=== PATIENT | male | born 1965 | race Caucasian/White ===

== ENCOUNTER 2018-04-24 17:10 | Emergency (ER) | payer MEDICARE, MEDICAID ==
[2018-04-24 17:19] VITALS: BMI 28.1
[2018-04-24 17:24] VITALS: BP 146/82; PULSE 89; RESP 18; TEMP 99; O2SAT 96
[2018-04-24] MEDS ORDERED: Bacitracin 500 Units/gm Oint Foilpak UD TOP STA (17:33)
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
[2018-04-24] MEDS ORDERED: Bacitracin 500 Units/gm Oint Foilpak UD ONE (17:38)
== END 2018-04-24 18:05 ==
LOC: C.ER 17:10
DX: S00.81XA Abrasion of other part of head, initial encounter (principal); Y04.0XXA Assault by unarmed brawl or fight, initial encounter

== ENCOUNTER 2018-12-08 06:57 | Inpatient (IN) | payer MEDICAID, MEDICARE ==
[2018-12-08 06:57] VITALS: BMI 28.1
[2018-12-08] MEDS ORDERED: Albuterol-Ipratrop 3 mg / 0.5 (3 ml) UD ONE (07:11)
[2018-12-08 07:51] LABS: BASO # 0.1 K/uL (0.0-0.2); BASO % 1.4 % (0.0-2.0); EOS % 0.9 % (0.0-4.0); HEMOGLOBIN 12.2 g/dL (12.0-18.0); LYMPH # 1.9 K/uL (1.0-4.3); LYMPH % 34.6 % (20.0-40.0); MEAN CELL VOLUME 94.3 fL (80.0-94.0); MEAN CORPUSCULAR HEMOGLOBIN 32.4 pg (27.0-31.0); MEAN CORPUSCULAR HGB CONC 34.4 g/dL (33.0-37.0); MEAN PLATELET VOLUME 9.5 fL (7.2-11.7); MONO # 0.7 K/uL (0.0-0.8); MONO % 13.5 % (0.0-10.0); NEUT # 2.7 K/uL (1.8-7.0); NEUT % 49.6 % (50.0-75.0); NRBC % 0.1 % (0.0-2.0); RBC 3.77 Mil/uL (4.40-5.90); RED CELL DISTRIBUTION WIDTH 13.9 % (11.5-14.5); WHITE BLOOD COUNT 5.4 K/uL (4.8-10.8)
--- NOTE | 2018-12-08 07:55 | C.PDOC ---
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 He denies any prior similar episodes. Patient admits to occasional cigarette smoking. He denies cough, fever, chills, abdominal pain, vomiting, palpitations, recent surgery, or recent travel. He also denies any personal or family history of cardiac disease. Time Seen by Provider: 12/08/18 07:08 Chief Complaint (Nursing): Shortness Of Breath History Per: Patient History/Exam Limitations: no limitations Onset/Duration Of Symptoms: Days (2-3) Current Symptoms Are (Timing): Still Present Current Respiratory Medications: See Home Med List Severity: Moderate Associated Symptoms: Chest Pain, Ankle/Leg Swelling Past Medical History Reviewed: Historical Data, Nursing Documentation, Vital Signs Vital Signs: Last Vital Signs Temp 98.9 F 12/08/18 07:07 Pulse 100 H 12/08/18 07:48 Resp 13 12/08/18 07:48 BP 125/68 12/08/18 07:48 Pulse Ox 96 12/08/18 07:48 - Medical History PMH: Asthma, HTN Other PMH: Liver Cirrhosis - [facility] Procedures EXCIS KNEE SEMILUN CARTL (06/03/13) OTH ARTHROTOMY-KNEE (06/03/13) OTHER REPAIR OF KNEE (06/03/13) OTHER THERAPEUTIC APHERESIS (06/03/13) Family History: States: No Known Family Hx - Social History Hx Alcohol Use: Yes Hx Substance Use: Yes - Immunization History Hx Tetanus Toxoid Vaccination: No Hx Influenza Vaccination: No Hx Pneumococcal Vaccination: No Review Of Systems Constitutional: Negative for: Fever, Chills Cardiovascular: Positive for: Chest Pain. Negative for: Palpitations Respiratory: Positive for: Shortness of Breath. Negative for: Cough Gastrointestinal: Negative for: Nausea, Vomiting, Abdominal Pain, Diarrhea Genitourinary: Negative for: Dysuria, Hematuria Musculoskeletal: Positive for: Other (Leg swelling). Negative for: Back Pain, Leg Pain Neurological: Negative for: Weakness, Numbness, Headache Physical Exam - Physical Exam Appears: Non-toxic, Other (Appears mildly uncomfortable, +Conversational dys pnea) Skin: Normal Color, Warm, Dry Head: Normacephalic Eye(s): bilateral: Normal Inspection, PERRL, EOMI Oral Mucosa: Moist Cardiovascular: Rhythm Regular, Murmur (4/6 holosystolic murmur) Respiratory: Rales (at the bases bilaterally), No Rhonchi, No Wheezing Gastrointestinal/Abdominal: Normal Exam, Bowel Sounds, Soft, No Tenderness, No Distention Extremity: Bilateral: Atraumatic, Normal ROM, Other (+3 pitting edema of B/L lower extremities, with some mild erythema) Pulses: Left Dorsalis Pedis: Normal, Right Dorsalis Pedis: Normal Neurological/Psych: Oriented x3, Normal Sensation ED Course And Treatment - Laboratory Results Result Diagrams: 12/08/18 07:40 12/10/18 07:33 ECG: Interpreted By Me, Viewed By Me ECG Rhythm: Sinus Rhythm ECG Interpretation: Abnormal Interpretation Of ECG: Short TN interval, normal axis, with ST depressions in I, II, and v4-v6, and no T wave inversions Rate From EC O2 Sat by Pulse Oximetry: 96 (on RA) Pulse Ox Interpretation: Normal - Other Rad CXR X-Ray: Read By Radiologist Interpretation: Accession No. : [id number]. Patient Name / ID : JESSIE SYED / [id number]. Exam Date : 12/08/2018 07:40:07 ( Approved ). Study Comment : Sex / Age : M / 53Y. Creator : Cathy Garibay MD. Dictator : Cathy Garibay MD. Lamp Decorator : Hat Renovator : Cathy Garibay MD. Approver2 : Report Date : 12/08/2018 08:01:34. My Comment : . HISTORY: SOB. COMPARISON: None available. TECHNIQUE: Chest, one view. FINDINGS: Examination limited by habitus. LUNGS: Mild venous congestion. Basilar atelectasis. Right hilar prominence. Please note that chest x-ray has limited sensitivity for the detection of pulmonary masses. PLEURA: No significant pleural effusion identified. No definite pneumothorax . CARDIOVASCULAR: Heart size appears top normal. Aortic ectasia. OSSEOUS STRUCTURES: Probable partial resection of the right clavicle. VISUALIZED UPPER ABDOMEN: Unremarkable. OTHER FINDINGS: None. IMPRESSION: Mild venous congestion. Bibasilar atelectasis. Right hilar prominence. Probable partial resection of the right clavicle. Correlate with surgical history. CTA Chest X-Ray: Read By Radiologist Interpretation: Accession No. : [id number]. Patient Name / ID : JESSIE SYED / [id number]. Exam Date : 12/08/2018 09:07:57 ( Approved ). Study Comment : Sex / Age : M / 53Y. Creator : Jeremy Macias. Dictator : China Darby MD. Lamp Decorator : Hat Renovator : China Darby MD. Approver2 : Report Date : 12/08/2018 09:19:21. My Comment : . Date of service: 12/08/2018. PROCEDURE: CT Chest with contrast (Pulmonary Angiogram). HISTORY: Shortness of breath, evaluate for pulmonary embolism. COMPARISON: None available. TECHNIQUE: Axial computed tomography images were obtained of the chest in the pulmonary arterial phase of enhancement. Coronal and sagittal reformatted images were created and reviewed. Intravenous contrast dose: 100 mL Visipaque 320. Radiation dose: Total exam DLP = 594.85 mGy-cm. This CT exam was performed using one or more of the following dose reduction techniques: Automated exposure control, adjustment of the mA and/or kV according to patient size, and/or use of iterative reconstruction technique. FINDINGS: PULMONARY ARTERIES: This examination is of suboptimal diagnostic quality for evaluation of pulmonary embolism due to missed bolus. There are no filling defects in the pulmonary arteries to suggest acute pulmonary embolism. AORTA: No acute findings. No thoracic aortic aneurysm. There are early aortic atherosclerotic calcifications present. LUNGS: The lungs are well inflated. There is round subsegmental atelectasis in the right lung base. No nodule, mass or pulmonary consolidation. PLEURAL SPACES: No effusion or pneumothorax. HEART: Mild cardiomegaly. No significant pericardial effusion. LYMPH NODES: There are subcentimeter mediastinal lymph nodes likely reactive. No hilar lymphadenopathy. BONES, CHEST WALL: Within normal limits for the patient's age. No fracture or destructive lesion. OTHER FINDINGS: Mild bilateral gynecomastia. IMPRESSION: 1. Examination is of suboptimal diagnostic quality for evaluation of pulmonary embolism due to missed bolus. Allowing for this, no central pulmonary embolism. 2. Focal round atelectasis in the right lung base. No evidence for consolidation, pleural effusion or pneumothorax. Progress Note: Blood work, EKG, CXR, CTA chest, venous dopplers ordered. Patient given 325 mg PO Aspirin, 0.4 mg SL NTG, and 40 mg IV Lasix. CTA ordered to rule out PE. Imaging resulted, CT shows no PE though "suboptimal due to missed bolus.". Patient is in methadone program, reports he takes 100mg methadone daily, had his dose today already. - Physician Consult Information Time Consulting Physician Contacted: 10:08 Physician Contacted: Kirby Mcgee Outcome Of Conversation: Will admit patient for observation of chest pain, dyspnea, anasarca, abnormal ekg Disposition - Disposition Disposition: HOSPITALIZED Disposition Time: 10:08 Condition: STABLE - Clinical Impression Clinical Impression: EKG abnormality, Chest pain, Leg edema, Anasarca - Scribe Statement The provider has reviewed the documentation as recorded by the Luis Fernando Davis Provider Attestation: All medical record entries made by the Luis Fernando were at my direction and personally dictated by me. I have reviewed the chart and agree that the record accurately reflects my personal performance of the history, physical exam, medical decision making, and the department course for this patient. I have also personally directed, reviewed, and agree with the discharge instructions and d isposition. Decision To Admit - Pt Status Changed To: Hospital Disposition Of: Observation - . Bed Request Type: Telemetry Admitting Physician: Kirby Mcgee Patient Diagnosis: Dyspnea, Chest pain, Leg edema, Anasarca, EKG abnormality
[2018-12-08 07:57] LABS: ALBUMIN 4.1 g/dL (3.5-5.0); ALT/SGPT 21 U/L (21-72); AST/SGOT 67 U/L (17-59); BLOOD UREA NITROGEN 8 mg/dL (9-20); CALCIUM 7.8 mg/dl (8.6-10.4); GFR NON-AFRICAN AMERICAN > 60
--- NOTE | 2018-12-08 08:05 | RAD ---
HISTORY: SOB COMPARISON: None available TECHNIQUE: Chest, one view. FINDINGS: Examination limited by habitus. LUNGS: Mild venous congestion. Basilar atelectasis. Right hilar prominence. Please note that chest x-ray has limited sensitivity for the detection of pulmonary masses. PLEURA: No significant pleural effusion identified. No definite pneumothorax . CARDIOVASCULAR: Heart size appears top normal. Aortic ectasia. OSSEOUS STRUCTURES: Probable partial resection of the right clavicle. VISUALIZED UPPER ABDOMEN: Unremarkable. OTHER FINDINGS: None. IMPRESSION: Mild venous congestion. Bibasilar atelectasis. Right hilar prominence. Probable partial resection of the right clavicle. Correlate with surgical history.
[2018-12-08 08:09] LABS: B-TYPE NATRIURETIC PEPTIDE 284 pg/mL (0-900); CK-MB 1.43 ng/mL (0.0-3.38)
[2018-12-08 08:27] LABS: INR 1.1; PROTHROMBIN TIME 12.4 SECONDS (9.7-12.2)
[2018-12-08 08:32] LABS: BARBITURATES, UR NEGATIVE (NEGATIVE); BENZODIAZEPINES, UR NEGATIVE (NEGATIVE); PHENCYCLIDINE, UR NEGATIVE (NEGATIVE)
[2018-12-08 08:34] LABS: OPIATES, UR POSITIVE (NEGATIVE)
[2018-12-08] MEDS ORDERED: Iodixanol 320 MG/ML 100 ML BOTTLE IV ONE (08:46)
--- NOTE | 2018-12-08 09:48 | CT ---
Date of service: 12/08/2018 PROCEDURE: CT Chest with contrast (Pulmonary Angiogram) HISTORY: Shortness of breath, evaluate for pulmonary embolism COMPARISON: None available. TECHNIQUE: Axial computed tomography images were obtained of the chest in the pulmonary arterial phase of enhancement. Coronal and sagittal reformatted images were created and reviewed. Intravenous contrast dose: 100 mL Visipaque 320 Radiation dose: Total exam DLP = 594.85 mGy-cm. This CT exam was performed using one or more of the following dose reduction techniques: Automated exposure control, adjustment of the mA and/or kV according to patient size, and/or use of iterative reconstruction technique. FINDINGS: PULMONARY ARTERIES: This examination is of suboptimal diagnostic quality for evaluation of pulmonary embolism due to missed bolus. There are no filling defects in the pulmonary arteries to suggest acute pulmonary embolism. AORTA: No acute findings. No thoracic aortic aneurysm. There are early aortic atherosclerotic calcifications present. LUNGS: The lungs are well inflated. There is round subsegmental atelectasis in the right lung base. No nodule, mass or pulmonary consolidation. PLEURAL SPACES: No effusion or pneumothorax. HEART: Mild cardiomegaly. No significant pericardial effusion. LYMPH NODES: There are subcentimeter mediastinal lymph nodes likely reactive. No hilar lymphadenopathy. BONES, CHEST WALL: Within normal limits for the patient's age. No fracture or destructive lesion OTHER FINDINGS: Mild bilateral gynecomastia. IMPRESSION: 1. Examination is of suboptimal diagnostic quality for evaluation of pulmonary embolism due to missed bolus. Allowing for this, no central pulmonary embolism. 2. Focal round atelectasis in the right lung base. No evidence for consolidation, pleural effusion or pneumothorax.
[2018-12-08 11:34] LABS: SQUAMOUS EPITHIAL < 1 /hpf (0-5); URINE BILIRUBIN NEGATIVE (NEGATIVE); URINE BLOOD NEGATIVE (NEGATIVE); URINE CLARITY Clear (Clear); URINE COLOR Yellow (YELLOW); URINE GLUCOSE (UA) NORMAL (Normal); URINE LEUKOCYTE ESTERASE NEG Leu/uL (Negative); URINE PROTEIN NEGATIVE (NEGATIVE)
[2018-12-08] MEDS ORDERED: Albuterol 0.083% Inhal Sol (2.5 mg/3 mL) UD IH STA (12:12)
[2018-12-08] MEDS: Albuterol-Ipratrop 3 mg / 0.5 (3 ml) UD INH SCH (19:38)
[2018-12-08 20:17] LABS: CK-MB 1.24 ng/mL (0.0-3.38)
--- NOTE | 2018-12-09 04:42 | HP ---
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 The patient was evaluated in emergency room and treated with aspirin, furosemide and nitroglycerin and he also was given a nebulizer treatment. The patient felt slightly better and admitted for further management. Other review of systems, bilateral lower extremity edema that has been progressive over the last 2 weeks. SOCIAL HISTORY: 1. Ex-smoker, stopped about a month ago. 2. Positive alcohol abuse, he drinks 5 to 6 beers daily. 3. Ex-IVDA, currently on methadone. FAMILY HISTORY: Noncontributory. MEDICATIONS: Blood pressure medications and methadone. PAST MEDICAL HISTORY: As above. PHYSICAL EXAMINATION: GENERAL: The patient is in bed, not in any cardiopulmonary distress. VITAL SIGNS: Blood pressure 133/71, temperature 98.5, respiratory rate 20 and pulse 66. HEENT: Pupils equal, reactive to light. Normal-appearing mucosa of the conjunctivae, oropharynx and nasal membrane mucosa. NECK: Supple. No JVD, no carotid bruit. No lymph node. No thyromegaly. CHEST AND LUNGS: Bilateral symmetrical expansion. Good air exchange. No rales. Few scattered rhonchi. CARDIOVASCULAR SYSTEM: PMI not localized. S1, S2. No additional sounds. ABDOMEN: There is hepatomegaly and splenomegaly and possible ascites. EXTREMITIES: Bilateral pitting edema of both lower extremities from the ankle up to the knee. CENTRAL NERVOUS SYSTEM: Alert, awake, oriented x2. No neurological deficit could be appreciated. ASSESSMENT: 1. Generalized anasarca, likely secondary to liver cirrhosis. 2. History of hypertension. 3. Ex-intravenous drug abuser, currently on methadone treatment. 4. History of hepatitis C status post treatment. PLAN: We will do an echocardiogram. Start the patient on Lasix and spironolactone. Cardiac enzymes every 8 hours x3. Hepatitis C viral load, abdominal ultrasound, albuterol or Proventil/Atrovent nebulizer treatment. Discussed the patient's condition with the patient and his brother and his significant other by the bedside. [facility] MD [facility] # [id number]
[2018-12-09 07:11] LABS: CK-MB 0.91 ng/mL (0.0-3.38); TROPONIN I 0.019 ng/mL (0.00-0.120)
[2018-12-09] MEDS: Albuterol-Ipratrop 3 mg / 0.5 (3 ml) UD INH SCH ×3 (07:41→19:57)
[2018-12-09] MEDS: Methadone 40 mg Tab PO SCH (09:25)
--- NOTE | 2018-12-09 10:56 | US ---
Date of service: 12/09/2018 HISTORY: splenomegaly, cirrhosis of liver COMPARISON: None. TECHNIQUE: Grayscale imaging was performed. FINDINGS: LIVER: Measures 18.6 cm. There is diffuse increased echogenicity in the liver with nodular contour. No mass. No intrahepatic bile duct dilatation. GALLBLADDER: Gallbladder is distended. There are no gallstones, wall thickening or pericholecystic fluid. The sonographic Bucio's sign is negative. COMMON BILE DUCT: Measures 8.4 mm. No stones. Mild diffuse dilatation. PANCREAS: Unremarkable as visualized. No mass. No ductal dilatation. RIGHT KIDNEY: Measures 11.9cm. Normal echogenicity. No calculus, mass, or hydronephrosis. LEFT KIDNEY: Measures 13.3cm. Normal echogenicity. No calculus, mass, or hydronephrosis. SPLEEN: Mild splenomegaly. The spleen measures 13.8 cm normal echogenicity. No mass. AORTA: No aneurysmal dilatation. IVC: Unremarkable. OTHER FINDINGS: None. IMPRESSION: 1. Mild hepatosplenomegaly and cirrhosis of liver. 2. Distended gallbladder without evidence for choledocholithiasis. Mild diffuse dilatation of the common bile duct without.
--- NOTE | 2018-12-09 12:51 | VASCLAB ---
Date of service: 12/08/2018 PROCEDURE: Lower Extremity Venous Duplex Exam. HISTORY: b/l leg edema r/o dvt PRIORS: None. TECHNIQUE: Bilateral common femoral, femoral, popliteal and posterior tibial, peroneal and great saphenous veins were evaluated. Flow was assessed with color Doppler, compressibility, assessment of phasic flow and augmentation response. Report prepared by NITHIN Lee FINDINGS: RIGHT: 1. Common Femoral Vein: 1.1. Compressibility - Fully compressible: Thrombus - None : Flow - Phasic: Augmentation -Normal: Reflux - None. 2. Femoral Vein: 2.1. Compressibility - Fully compressible: Thrombus - None : Flow - Phasic: Augmentation -Normal: Reflux - None. 3. Popliteal Vein: 3.1. Compressibility - Fully compressible: Thrombus - None : Flow - Phasic: Augmentation -Normal: Reflux - None. 4. Posterior Tibial Vein: 4.1. Compressibility - Fully compressible: Thrombus - None: Flow - Phasic: Augmentation -Normal: Reflux - None. 5. Peroneal Vein: 5.1. Compressibility - Fully compressible: Thrombus - None: Flow - Phasic: Augmentation -Normal: Reflux - None. 6. Great Saphenous Vein: 6.1. Compressibility - Fully compressible: Thrombus - None: Flow - Phasic: Augmentation - Normal: Reflux - None. LEFT: 1. Common Femoral Vein: 1.1. Compressibility - Fully compressible: Thrombus - None: Flow - Phasic: Augmentation -Normal: Reflux - None. 2. Femoral Vein: (Proximal and mid views only, due to edema) 2.1. Compressibility - Fully compressible: Thrombus - None: Flow - Phasic: Augmentation -Normal: Reflux - None. 3. Popliteal Vein: 3.1. Compressibility - Fully compressible: Thrombus - None : Flow - Phasic: Augmentation -Normal: Reflux - None. 4. Posterior Tibial Vein: 4.1. Compressibility - Fully compressible: Thrombus - None: Flow - Phasic: Augmentation -Normal: Reflux - None. 5. Peroneal Vein: 5.1. Compressibility - Fully compressible: Thrombus - None: Flow - Phasic: Augmentation -Normal: Reflux - None. 6. Great Saphenous Vein: 6.1. Compressibility - Fully compressible: Thrombus - None: Flow - Phasic: Augmentation - Normal: Reflux - None. OTHER FINDINGS: Soft tissue edema noted bilaterally, more on the left than right. IMPRESSION: Right: No evidence of deep or superficial vein thrombosis of the right lower extremity. Normal valve function noted of the right side. Left: No evidence of deep or superficial vein thrombosis of the left lower extremity. Normal valve function noted of the left side.
[2018-12-09 14:40] LABS: CK-MB 1.07 ng/mL (0.0-3.38)
--- NOTE | 2018-12-09 17:58 | CARD ---
APPROVED REPORT Date of service: 12/09/2018 EXAM: Two-dimensional and M-mode echocardiogram with Doppler and color Doppler. Other Information Quality : GoodRhythm : INDICATION Dyspnea Chest Pain liver cirrhosis, IV heroin abuse RISK FACTORS Hypertension 2D DIMENSIONS IVSd1.1 (0.7-1.1cm)LVDd5.7 (3.9-5.9cm) LVOT Diameter2.2 (1.8-2.4cm)PWd1.0 (0.7-1.1cm) LA Kwhhjn72 (18-58mL)LVDs3.2 (2.5-4.0cm) FS (%) 44.1 %LVEF (%)74.0 (>50%) LVEF (Headley's)76 %IVC0.00 cm M-Mode DIMENSIONS RVDd2.82 (2.1-3.2cm)Left Atrium (MM)5.16 (2.5-4.0cm) IVSd0.91 (0.7-1.1cm)Aortic Root3.17 (2.2-3.7cm) LVDd5.73 (4.0-5.6cm)Aortic Cusp Exc.2.20 (1.5-2.0cm) PWd0.94 (0.7-1.1cm)FS (%) 43 % LVDs3.25 (2.0-3.8cm)TAPSE27.77 cm LVEF (%)72 (>50%) Aortic Valve AoV Peak Ssoxnzby050.3cm/sAoV VTI58.7cmAO Peak GR.27mmHg LVOT Peak Uyuceyie447.8cm/sLVOT VTI27.50cmAO Mean GR.15mmHg EVA (VMAX)1.09zv7WKI (VTI)1.75cm2 Mitral Valve MV E Wfvfisva674.3cm/sMV A Fxxuqnvs16.5cm/sE/A ratio2.5 TDI Lateral E' Peak V10.87cm/sMedial E' Peak V11.19cm/sE/Lateral E'13.9 E/Medial E'13.5 Tricuspid Valve TR Peak Rgdpbnzl461gf/sTR Peak Gr.52twXkPLFK94udJf LEFT VENTRICLE The left ventricle is normal size. There is normal left ventricular wall thickness. The left ventricular function is normal. The left ventricular ejection fraction is within the normal range. There is normal LV segmental wall motion. Transmitral Doppler flow pattern is Grade II-pseudonormal filling dynamics. No left ventricle thrombus noted on this study. RIGHT VENTRICLE The right ventricle is normal size. There is normal right ventricular wall thickness. Systolic function is borderline reduced. ATRIA The left atrium size is normal. The right atrium size is normal. AORTIC VALVE The aortic valve is mildly thickened. No aortic regurgitation is present. There is mild valvular aortic stenosis. MITRAL VALVE The mitral valve is normal in structure. There is no evidence of mitral valve prolapse. There is no mitral valve stenosis. Mitral regurgitation is mild. TRICUSPID VALVE There is mild tricuspid regurgitation. There is moderate pulmonary hypertension. GREAT VESSELS The aortic root is normal in size. <Conclusion> The left ventricle is normal size. There is normal left ventricular wall thickness. The left ventricular function is normal. The left ventricular ejection fraction is within the normal range. There is normal LV segmental wall motion. Transmitral Doppler flow pattern is Grade II-pseudonormal filling dynamics. There is mild valvular aortic stenosis. There is mild tricuspid regurgitation. There is moderate pulmonary hypertension. Mitral regurgitation is mild.
--- NOTE | 2018-12-09 18:44 | CARD ---
APPROVED REPORT Date of service: 12/08/2018 EKG Measurement Heart [id number] LA [id number] <Conclusion> Sinus rhythm with short LA Moderate voltage criteria for LVH, may be normal variant Nonspecific ST abnormality Prolonged QT Abnormal ECG
--- NOTE | 2018-12-09 19:48 | PN ---
DATE: 12/09/2018 SUBJECTIVE: The patient is seen today, 12/09/2018. He still has bilateral lower extremity edema. PHYSICAL EXAMINATION: VITAL SIGNS: Blood pressure 158/77, temperature 98, respiratory rate 20 and pulse 62. HEENT: Pupils equal, reactive to light. Normal-appearing mucosa of the conjunctivae, oropharynx, and nasal membrane mucosa. NECK: Supple. No JVD, no carotid bruits, no lymph nodes. No thyromegaly. CHEST AND LUNGS: Bilateral symmetrical expansion. Good air exchange. No rales, no rhonchi. CARDIOVASCULAR SYSTEM: PMI not localized. S1 and S2. No additional sounds. ABDOMEN: Normoactive bowel sounds. No tenderness, no organomegaly. No masses. EXTREMITIES: No cyanosis, no clubbing, no bilateral lower extremity edema. CENTRAL NERVOUS SYSTEM: Alert, awake, oriented x2. No neurological deficit could be appreciated. LABORATORY DATA: Blood work showed that the hepatitis C antibody is very active, viral load is pending. ASSESSMENT: 1. Generalized anasarca. 2. 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 3. History of substance abuse, currently on methadone program. PLAN: Continue current diuretics. Follow the echocardiogram done. Monitor electrolytes. Kirby Mcgee MD
[2018-12-10] MEDS: Albuterol-Ipratrop 3 mg / 0.5 (3 ml) UD INH SCH ×3 (01:20→13:22)
--- NOTE | 2018-12-10 06:43 | CON ---
DATE: 12/09/2018 CARDIOLOGY CONSULTATION REASON FOR CONSULTATION: Shortness of breath and leg swelling. HISTORY OF PRESENT ILLNESS: The patient is a 53-year-old male. He is EtOH abuser, former smoker, quit one month ago, had history of liver cirrhosis, history of heroin abuse, presents because of leg swelling, chest pain, and shortness of breath. The patient is unaware of any prior cardiac history. SOCIAL HISTORY: The patient quit smoking one month ago. He is EtOH abuser. He is on methadone program. MEDICATIONS: Aldactone 50 mg once a day, aspirin 81 mg once a day, albuterol inhaler every 6 hours, Lasix 20 mg intravenous twice a day, and methadone 20 mg once a day. REVIEW OF SYSTEMS: No fever or chills. No hematemesis or melena. No recent syncope or fall. PHYSICAL EXAMINATION: GENERAL: The patient is a middle-aged male who does not appear to be in acute distress. VITAL SIGNS: Blood pressure 158/77, heart rate 62, temperature 98, and respirations 20. HEENT: Normocephalic. CHEST: Diminished breath sounds over the bases. HEART: S1, S2 regular. ABDOMEN: Soft. EXTREMITIES: 1+ pitting edema. LABORATORY DATA: Admitting hemoglobin and hematocrit and white count are within normal limits. Platelet count is within normal at 107. Admitting SMA-7 is within normal limits except BUN and creatinine of 8 and 0.5 respectively. Four sets of troponins are not in elevated range. TSH level was within normal limits. Lipid profile is within normal limits except for HDL at 87. INR is 1.1, PTT 40. Urine drug screen is positive for opiates and methadone. Hepatitis C antibody is reactive. Abdominal ultrasound: Mild hepatosplenomegaly and cirrhosis of the liver. Distended gallbladder without evidence of choledocholithiasis, mild diffuse dilatation of the common bile duct. Chest CT scan with PE protocol: Examination is of suboptimal diagnostic quality for evaluation of pulmonary embolism due to a missed bolus. Along this, no central pulmonary embolus. Focal round atelectasis on right base. No evidence of consolidation. EKG revealed sinus rhythm at a rate of 95, prolonged QT interval, nonspecific ST-segment changes. Venous Doppler of lower extremity, no evidence of DVT. ASSESSMENT: 1. Liver cirrhosis. 2. Hepatitis C. 3. Consider secondary pulmonary hypertension and right-sided heart failure. 4. Thrombocytopenia. 5. Heroin abuse. RECOMMENDATIONS: Continue current Aldactone 50 mg once a day, aspirin 81 mg once a day, Lasix 20 mg intravenously every 12 hours, start thiamine 100 mg once a day. I will follow echocardiographic study performed today. Ck Tinsley MD
[2018-12-10 08:21] VITALS: PULSE 70; RESP 18; TEMP 99.2
[2018-12-10 08:21] LABS: ALB/GLOB RATIO 0.9 (1.0-2.1); ALBUMIN 4.1 g/dL (3.5-5.0); ALT/SGPT 30 U/L (21-72); AST/SGOT 60 U/L (17-59); BLOOD UREA NITROGEN 13 mg/dL (9-20); CALCIUM 8.5 mg/dl (8.6-10.4); GFR NON-AFRICAN AMERICAN > 60
[2018-12-10] MEDS: Methadone 40 mg Tab PO SCH (10:30)
[2018-12-10 11:36] VITALS: BP 137/77
--- NOTE | 2018-12-10 13:52 | PQF ---
PROVIDER RESPONSE TEXT: Mild intermittent. REVIEWER QUERY TEXT: Asthma Specificity and Type Physician?s Documentation Request This Form is Not a Permanent Document in the Medical Record Pt Name: KUNAL ROMAN MR #: [id number] Payor: MEDICARE HMO Unit/Bed: C.6T-C660-B Adm Date: 12/09/2018 5:02:00 PM Reviewer: Katt aDwson Ext. Query Date: 12/09/2018 6:14:15 PM Asthma Specificity and Type [id number] By submitting this query, we are merely seeking further clarification of documentation to accurately reflect all conditions that you are monitoring, evaluating, treating or that extend the hospitalizati on or utilize additional resources of care. Please utilize your independent clinical judgment when ad dressing the question(s) below. Dear Doctor Kirby Mcgee, The patient?s Clinical Indicators include: 53 Y O M with Hx Asthma, admitted with chest pain, generalized anasarca Meds: Duoneb, Asthma is documented in the Medical Record. Please specify the type and severity of asthma and indic ate if this is associated with exacerbation or status asthmaticus. Such as: -- Mild intermittent -- Mild persistent -- Moderate persistent -- Severe persistent -- Exercise induced bronchospasm -- Cough variant asthma -- Other, please specify PLEASE DOCUMENT ANY ADDITIONAL DIAGNOSES AND/OR SPECIFICITY IN THE PROGRESS NOTES AND/OR DISCHARGE [facility]. Clinically unable to determine/unknown Disagree with the above request Need to discuss Query created by: Katt Dawson on 12/09/2018 6:14 PM Electronically signed by: Kirby Mcgee MD 12/10/2018 1:49 PM
--- NOTE | 2018-12-10 17:58 | CP.PCM.PN ---
Subjective - Date & Time of Evaluation Date of Evaluation: 12/10/18 Time of Evaluation: 11:00 - Subjective Subjective: alert, oriented, ambualatory, denies sob or chest pains, no acute distress. Objective - Vital Signs/Intake and Output Vital Signs (last 24 hours): Temp Pulse Resp BP Pulse Ox 99.2 F 70 18 137/77 98 12/10/18 08:00 12/10/18 08:00 12/10/18 08:00 12/10/18 10:30 12/10/18 08:00 Intake and Output: 12/10/18 12/10/18 06:59 18:59 Intake Total 480 Balance 480 - Labs Labs: 12/08/18 07:40 12/10/18 07:33 PT 12.4 SECONDS (9.7-12.2) H 12/08/18 07:40 INR 1.1 12/08/18 07:40 APTT 40.0 SECONDS (21-34) H 12/08/18 07:40 Assessment and Plan - Assessment and Plan (Free Text) Assessment: 53 year old male admitted with chest pain , seen and examined. Alert and oriented x3, denies sob or chest pains, no distress. Plan to discharge home today by DR Mcgee, advised to follow up in the office in 1 week.
--- NOTE | 2018-12-10 22:27 | PN ---
DATE: 12/10/2018 SUBJECTIVE: The patient denies any chest pain. PHYSICAL EXAMINATION: VITAL SIGNS: Blood pressure 137/77, heart rate 70, temperature 99.2, and respirations 18. HEENT: Normocephalic. CHEST: Bibasilar rhonchi. HEART: S1 and S2 regular. EXTREMITIES: 1+ pitting edema. LABORATORY DATA: Today's SMA-7 is within normal limits except for anion gap of 8 and creatinine of 0.7. Calcium is within normal at 8.5. Magnesium is 2.0. Echocardiography study revealed normal ejection fraction, grade 2 pseudonormal filling dynamics, mild aortic stenosis, moderate pulmonary hypertension. ASSESSMENT: 1. Moderate pulmonary hypertension, consider right-sided failure. 2. Liver cirrhosis. 3. Hepatitis C. 4. Thrombocytopenia. 5. Heroin abuse. RECOMMENDATIONS: Case was discussed with Dr. Mcgee. The patient can be discharged on Aldactone 50 mg once a day, aspirin 81 mg once a day, and thiamine 100 mg once a day. Ck Tinsley MD
--- NOTE | 2018-12-11 06:50 | DS ---
REASON FOR ADMISSION: This is a 53-year-old white male with history of liver cirrhosis and hepatitis C who was admitted for generalized anasarca. HOSPITAL COURSE: The patient was admitted to medical floor and he was started on both IV Lasix and Aldactone. The patient was also given methadone 100 mg that he has been on. The patient's symptoms remarkably improved and edema improved. The patient is being discharged home on Lasix 40 mg daily and Aldactone 25 mg daily, to follow electrolytes as an outpatient in 4 days. The patient will be discharged home today. FINAL DIAGNOSES: Liver cirrhosis, generalized anasarca, hepatitis C, status post treatment. [facility] MD [place]
[2018-12-11 08:53] VITALS: O2SAT 96
== END 2018-12-10 16:16 | disposition home or self-care (01) | DRG 433 ==
LOC: C.ER 06:57 → C.9E 10:08 → C.6T 13:09 → OBSVTOIN 12-09 17:02
PROVIDERS: ADMIT Internal Medicine; ATTEND Internal Medicine
PROC: HZ81ZZZ Medication Management for Substance Abuse Treatment, Methadone Maintenance (ICD-10-PCS; principal; 2018-12-09)
DX: K70.30 Alcoholic cirrhosis of liver without ascites (principal); R60.1 Generalized edema; B19.20 Unspecified viral hepatitis C without hepatic coma; F11.20 Opioid dependence, uncomplicated; F10.10 Alcohol abuse, uncomplicated; R07.9 Chest pain, unspecified; I10 Essential (primary) hypertension; J45.20 Mild intermittent asthma, uncomplicated; D69.6 Thrombocytopenia, unspecified; I27.20 Pulmonary hypertension, unspecified; I77.819 Aortic ectasia, unspecified site; Z87.891 Personal history of nicotine dependence; Z79.899 Other long term (current) drug therapy